=== PATIENT | female | born 1995 | race Two or more races ===

== ENCOUNTER 2017-12-11 18:24 | Emergency (ER) | payer OTHER ==
[2017-12-11 18:36] VITALS: BP 118/58
--- NOTE | 2017-12-11 18:47 | EDPHY ---
H & P Stated Complaint: hit the top of head with a 35lb weight. Denies LOC, now mild nausea Time Seen by Provider: 12/11/17 18:39 HPI/ROS: CHIEF COMPLAINT: "I hit my head" HISTORY OF PRESENT ILLNESS: 22-year-old female with no anticoagulant use history arrives via private vehicle stating that she stood up suddenly impacted the vertex of her head against a weight. Occurred approximately 1 hr prior to arrival.No object fell and hit her. She is complaining of mild localized pain to this area only hand mild nausea. No progressive or thunderclap headaches. No peripheral paresthesia, weakness, numbness. No midline C-spine pain. No visual disturbance. No vomiting. No back pain. No dyspnea. No chest pain or trauma. REVIEW OF SYSTEMS: A ten point review of systems was performed and is negative with the exception of the items mentioned in the HPI PAST MEDICAL/SURGICAL HISTORY: no anticoagulant use, spontaneous pneumothorax x3. SOCIAL HISTORY: denies alcohol use at time of incident PHYSICAL EXAM 1) GENERAL: Well-developed, well-nourished, alert and oriented. Appears to be in no acute distress. Answering questions appropriately. 2) HEAD: Normocephalic, , localized area of tenderness right lateral vertex. No hematoma. No depression. No laceration or abrasion. 3) HEENT: Pupils equal, round, reactive to light bilaterally. Negative Horners. Nasopharynx, oropharynx, clear. No deformity or angulation of nose. No septal hematoma. No rhinorrhea. No oral trauma. Ears bilaterally with normal tympanic membranes. No hemotympanum. No fluid or blood in the external auditory canal. No raccoon eyes. No Godfrey sign. Teeth are normally aligned with no gross malocclusion, TMJ bilaterally nontender, facial bones nontender including the zygomatic arch, maxilla mandible. 4) NECK: No cervical collar is on. Posterior cervical spine is nontender, no stepoff, no effusion. Full range of motion which does not elicit any midline cervical spine pain, no posterior midline tenderness, no step-off. 5) LUNGS: Clear to auscultation bilaterally, no wheezes, no rhonchi, no retractions. No obvious signs of trauma. No chest wall pain. No flaring, no grunting. Moving symmetrically. No crepitus. 6) HEART: [Regular rate and rhythm, 7) ABDOMEN: No guarding, no rebound, no focal tenderness, no peritoneal signs, no signs of trauma, no ecchymosis 8) MUSCULOSKELETAL: Moving all extremities, no focal areas of tenderness, no obvious trauma. 9) BACK: No midline vertebral tenderness, no fluctuance, no step-off, no obvious trauma, no visual or palpable abnormality. 10) SKIN: No laceration. No abrasion DIFFERENTIAL DIAGNOSIS: Not necessarily in any particular order, my differential diagnosis includes, but is not limited to, concussion, skull fracture, intraparenchymal contusion, subarachnoid, subdural and epidural hematoma. The patient understands that this diagnosis is provisional and can never be 100% accurate. - Personal History LMP (Females 10-55): Now - Medical/Surgical History Hx Asthma: No Hx Chronic Respiratory Disease: No Hx Diabetes: No Hx Cardiac Disease: No Hx Renal Disease: No Hx Cirrhosis: No Hx Alcoholism: No Hx HIV/AIDS: No Hx Splenectomy or Spleen Trauma: No Other PMH: multiple pneumothorax - Social History Smoking Status: Never smoked Constitutional: Initial Vital Signs Temperature (C) 36.8 C 12/11/17 18:33 Heart Rate 64 12/11/17 18:33 Respiratory Rate 16 12/11/17 18:33 Blood Pressure 118/58 L 12/11/17 18:33 O2 Sat (%) 98 12/11/17 18:33 O2 Delivery Mode Room Air Allergies/Adverse Reactions: No Known Allergies Allergy (Verified 12/11/17 18:32) Home Medications: Medication Instructions Recorded Citalopram Hydrobromide [celeXA 10 12/11/17 MG] Tiotropium Inhaler [Spiriva 12/11/17 Handihaler] Medical Decision Making ED Course/Re-evaluation: 6:50 p.m.: This patient has a nonfocal exam, negative [place] head CT imaging decision-making tool. I do not think that the benefits of CT imaging outweigh the risks in this patient whom I have a low pretest suspicion for intracranial hemorrhage and/or skull fracture. Nonetheless I have have provided usual and customary head injury precautions instructions. I have explained my decision- making process to her and she verbalized understanding and feels comfortable with this plan of observation. I believe her to have decision-making capacity. Care of patient under supervision of primary Supervising physician Dr Willams. Departure - Departure Disposition: Home, Routine, Self-Care Clinical Impression: Head injury due to trauma Condition: Good Instructions: Head Injury (ED) Additional Instructions: ALTHOUGH THERE IS NO EVIDENCE OF SERIOUS HEAD INJURY AT THIS TIME, DELAYED SIGNS CAN APPEAR 24 TO 48 HOURS AFTER INJURY. PLEASE RETURN TO THE EMERGENCY DEPARTMENT (ED) IMMEDIATELY IF YOU HAVE INCREASED HEADACHE, PERSISTENT HEADACHE , VOMITING, WEAKNESS, CONFUSION OR VISUAL PROBLEMS. WE RECOMMEND THAT YOU DO NOT RESUME CONTACT SPORTS OR ACTIVITIES THAT TAKE COORDINATION OR BALANCE SUCH SKIING OR RIDING A BICYCLE UNTIL CLEARED TO DO SO BY YOUR DOCTOR OR BY A NEUROLOGIST. Referrals: Alice Gomez MD [Medical Doctor] - As per Instructions
== END 2017-12-11 19:12 | disposition home or self-care (01) ==
DX: S09.90XA Unspecified injury of head, initial encounter (principal); W22.8XXA Striking against or struck by other objects, initial encounter

== ENCOUNTER 2017-12-23 22:03 | Emergency (ER) | payer OTHER ==
[2017-12-23 22:07] VITALS: BP 106/61
[2017-12-23] MEDS ORDERED: MAG HYDROX/AL HYDROX/SIMETH 30 ML UDCUP PO ONE (22:36)
[2017-12-23] MEDS ORDERED: LIDOCAINE 2% VISCOUS 15 ML UDCUP PO ONE (22:36)
--- NOTE | 2017-12-23 22:36 | EDPHY ---
H & P Stated Complaint: sharp pain in mid chest then SOB one hour [employer] Time Seen by Provider: 12/23/17 22:09 HPI/ROS: Chief Complaint: Chest pain, shortness of breath HPI: 22-year-old woman had a sudden onset of central chest tightness with some shortness of breath while walking down the mall this evening. She has a history of 3 spontaneous pneumothoraces in the past, 2 on the right, 1 on the left. She says that she is feeling tonight did not feel like her prior collapsed lungs. No recent falls or injuries. She has had a mild nonproductive cough the last 2 days. She has been using Atrovent inhaler at the recommendation of her surgeon from her last pneumothorax. No fevers or chills. No dyspnea on exertion. She is not taking any medications. Does hurt when she moves her arms around her sternum. ROS: 10 point Review of Systems is negative except as noted in the HPI. PMH: Spontaneous pneumothorax x3 Social History: No smoking, no alcohol, no recreational drug use Family History: non-contributory Physical Exam: Gen: Awake, Alert, No Distress HEENT: Nose: no rhinorrhea Eyes: PERRLA, EOMI Mouth: Moist mucosa Neck: Supple, no JVD Chest: Patient has bilateral parasternal chest wall tenderness to palpation reproducing presenting complaint, lungs clear to auscultation Heart: S1, S2 normal, no murmur Abd: Soft, non-tender, no guarding Back: no CVA tenderness, no midline tenderness Ext: no edema, non-tender Skin: no rash Neuro: CN II-XII intact, Sensation grossly intact, Strength 5/5 in bilateral upper and lower extremities - Personal History LMP (Females 10-55): 1-7 Days Ago Current Tetanus/Diphtheria Vaccine: Yes Current Tetanus Diphtheria and Acellular Pertussis (TDAP): Yes - Medical/Surgical History Hx Asthma: No Hx Chronic Respiratory Disease: No Hx Diabetes: No Hx Cardiac Disease: No Hx Renal Disease: No Hx Cirrhosis: No Hx Alcoholism: No Hx HIV/AIDS: No Hx Splenectomy or Spleen Trauma: No Other PMH: multiple pneumothorax - Social History Smoking Status: Never smoked Constitutional: Initial Vital Signs Temperature (C) 36.6 C 12/23/17 22:05 Heart Rate 66 12/23/17 22:05 Respiratory Rate 18 12/23/17 22:05 Blood Pressure 106/61 12/23/17 22:05 O2 Sat (%) 98 12/23/17 22:05 O2 Delivery Mode Room Air Allergies/Adverse Reactions: No Known Allergies Allergy (Verified 12/23/17 22:07) Home Medications: Medication Instructions Recorded Citalopram Hydrobromide [celeXA 10 12/11/17 MG] Medical Decision Making - Diagnostics Imaging Results: Imaging Impressions Chest X-Ray 12/23/17 22:15 Impression: No evidence of pneumothorax. ED Course/Re-evaluation: Patient's chest x-ray is normal. She has reproducible parasternal pain consistent with chest wall strain. He has no risk factors for coronary disease or PE. She is otherwise young and healthy. Will send her home with nonsteroidals, follow up with primary care physician. - Data Points Medications Given: Discontinued Medications Al Hydroxide/Mg Hydroxide (Maalox Susp) 30 ml PO ONCE ONE Stop: 12/23/17 22:37 Last Admin: 12/23/17 22:44 Dose: 30 ml Lidocaine (Lidocaine 2% Viscous) 15 ml PO ONCE ONE Stop: 12/23/17 22:37 Last Admin: 12/23/17 22:44 Dose: 15 ml Departure - Departure Disposition: Home, Routine, Self-Care Clinical Impression: Chest wall pain Condition: Good Instructions: Chest Wall Pain (ED) Additional Instructions: Alternate acetaminophen (1000 mg) with ibuprofen (400 mg) every 4 hours as needed for pain. Follow up with primary care physician in 3-4 days if symptoms are not improving. Return to the emergency department for increasing chest pain, shortness of breath, fainting, or any other concerns. Referrals: NONE *PRIMARY CARE P,. [Primary Care Provider] - As per Instructions
[2017-12-23] MEDS ORDERED: IBUPROFEN 600 MG TAB PO ONE (22:58)
== END 2017-12-23 23:06 | disposition home or self-care (01) ==
DX: R07.89 Other chest pain (principal)

== ENCOUNTER 2018-02-25 00:32 | Emergency (ER) | payer OTHER ==
[2018-02-25] MEDS ORDERED: NS 1,000 ML IV ONE (00:41)
--- NOTE | 2018-02-25 00:41 | EDPHY ---
H & P Stated Complaint: rt CP, sudden onset tonight just [employer]. hx/o spont. pneumo x 3, feels same Time Seen by Provider: 02/25/18 00:41 HPI/ROS: HPI CHIEF COMPLAINT: Right-sided chest discomfort. HISTORY OF PRESENT ILLNESS: 22-year-old female, presents emergency room she states approximately 45 min ago she developed sudden-onset right-sided sharp stabbing chest chest pain. States that the pain is mainly right lateral upper chest and clavicular region. Worse when she takes deep breath in. She states she has had previous history of 3 pneumothorax is. All spontaneous. This feels similar in presentation. She has had a pleurodesis of both lungs. She believes she had 2 pneumothorax on the right and 1 pneumothorax on the left all requiring chest tubes. She states denies any trauma tonight. She reports she had Pleurodesis of both lungs. She thinks last pneumothorax was 2 years ago. She denies a history of PE or cardiovascular disease. She believes that she gets pneumothorax from blebs. States she has a family history of these. Past Medical History: Pneumothorax x3. Past Surgical History: Chest tube x3, pleurodesis bilaterally Social History: Denies daily use drugs alcohol tobacco. Family History: Noncontributory ROS REVIEW OF SYSTEMS: A comprehensive 10 point review of systems is otherwise negative aside from elements mentioned in the history of present illness. Exam Constitutional appears well nontoxic no acute distress, triage nursing summary reviewed, vital signs reviewed, awake/alert. Vital signs stable triage. Eyes normal conjunctivae and sclera, EOMI, PERRLA. HENT normal inspection, atraumatic, moist mucus membranes, no epistaxis, neck supple/ no meningismus, no raccoon eyes. Respiratory good breath sounds bilaterally, no subcutaneous emphysema clear to auscultation bilaterally, normal breath sounds, no respiratory distress, no wheezing. Cardiovascular rate normal, regular rhythm, no murmur, no edema, distal pulses normal. Gastrointestinal soft, non-tender, no rebound, no guarding, normal bowel sounds, no distension, no pulsatile mass. Genitourinary no CVA tenderness. Musculoskeletal no midline vertebral tenderness, full range of motion, no calf swelling, no tenderness of extremities, no meningismus, good pulses, neurovascularly intact. Skin pink, warm, & dry, no rash, skin atraumatic. Neurologic awake, alert and oriented x 3, AAOx3, moves all 4 extremities equally, motor intact, sensory intact, CN II-XII intact, normal cerebellar, normal vision, normal speech. Psychiatric normal mood/affect. Heme/Lymph/Immune no lymphadenopathy. Differential Diagnosis: Includes but is not limited to in a particular order right-sided pneumothorax, tension pneumothorax, bleb, PE, musculoskeletal chest pain, pleurisy Medical Decision Making: Plan for this patient two view chest x-ray to rule out pneumothorax, IV establishment blood draw, EKG, D-dimer. Re-evaluate. Re-evaluation: ED x-ray chest two view negative for pneumothorax or acute cardiopulmonary disease I do visualize scar tissue in the right lung. EKG interpretation by me on record in [facility] system. Impression time of EK12/06/1999, sinus rhythm is 64 no acute ischemia no ST elevation ST depression T-wave abnormality V1 and V3. Nonspecific otherwise no signs of acute ischemia. 0150: I did go re-evaluate the patient she still complains of right-sided pleuritic pain sharp stabbing worse when she breathes in. I was unable to visualize pneumothorax on the x-ray. Is possible there is a small 1 I am unable to see versus pulmonary embolism. Patient does complain of sharp stabbing right-sided pain when she breathes in. I had a long discussion with her about risk versus benefit about CT imaging of her chest she would like to proceed with CT angiogram of chest rule out PE versus pneumothorax. Discussed risk versus benefit of this. CT angiogram of the chest shows no evidence of pneumothorax or pulmonary embolism called to me by Dr. Reid. Return precautions discussed with patient understands return emergency room if develops worsening chest pain shortness of breath, fever. Recommend anti- inflammatory pain medicine. Possible pleurisy given scar tissue. Source: Patient - Personal History LMP (Females 10-55): 1-7 Days Ago Current Tetanus/Diphtheria Vaccine: Yes Current Tetanus Diphtheria and Acellular Pertussis (TDAP): Yes - Medical/Surgical History Hx Asthma: No Hx Chronic Respiratory Disease: No Hx Diabetes: No Hx Cardiac Disease: No Hx Renal Disease: No Hx Cirrhosis: No Hx Alcoholism: No Hx HIV/AIDS: No Hx Splenectomy or Spleen Trauma: No Other PMH: multiple pneumothorax - Social History Smoking Status: Never smoked Constitutional: Initial Vital Signs Temperature (C) 36.5 C 07/24/18 00:36 Heart Rate 82 02/25/18 00:36 Respiratory Rate 16 02/25/18 00:36 Blood Pressure 112/72 02/25/18 00:36 O2 Sat (%) 96 02/25/18 00:36 O2 Delivery Mode Room Air O2 (L/minute) 2 Allergies/Adverse Reactions: No Known Allergies Allergy (Verified 02/25/18 00:35) Home Medications: Medication Instructions Recorded Citalopram Hydrobromide [celeXA 10 12/11/17 MG] Medical Decision Making - Data Points Laboratory Results: Laboratory Results 02/25/18 00:45 02/25/18 00:45 02/25/18 02/25/18 02/25/18 00:48 00:45 00:45 WBC RBC Hgb Hct MCV MCH MCHC RDW Plt Count MPV Neut % (Auto) Lymph % (Auto) Johnson % (Auto) Eos % (Auto) Baso % (Auto) Nucleat RBC Rel Count Absolute Neuts (auto) Absolute Lymphs (auto) Absolute Monos (auto) Absolute Eos (auto) Absolute Basos (auto) Absolute Nucleated RBC Immature Gran % Immature Gran # D-Dimer 0.40 ug/mLFEU ug/mLFEU (0.00-0.50) Sodium 139 mEq/L mEq/L (135-145) Potassium 3.8 mEq/L mEq/L (3.3-5.0) Chloride 111 mEq/L H mEq/L (97-110) Carbon Dioxide 19 mEq/l L mEq/l (22-31) Anion Gap 9 mEq/L mEq/L (8-16) BUN 14 mg/dL mg/dL (7-23) Creatinine 0.7 mg/dL mg/dL (0.6-1.0) Estimated GFR > 60 Glucose 119 mg/dL H mg/dL (70-100) Calcium 9.3 mg/dL mg/dL (8.5-10.4) POC Troponin I 0.00 ng/mL ng/mL (0.00-0.08) NT-Pro-B Natriuret Pep 23 pg/mL pg/mL (0-125) 02/25/18 00:45 WBC 10.26 10^3/uL H 10^3/uL (3.80-9.50) RBC 5.13 10^6/uL 10^6/uL (4.18-5.33) Hgb 12.4 g/dL L g/dL (12.6-16.3) Hct 39.1 % % (38.0-47.0) MCV 76.2 fL L fL (81.5-99.8) MCH 24.2 pg L pg (27.9-34.1) MCHC 31.7 g/dL L g/dL (32.4-36.7) RDW 17.6 % H % (11.5-15.2) Plt Count 306 10^3/uL 10^3/uL (150-400) MPV 10.3 fL fL (8.7-11.7) Neut % (Auto) 51.0 % % (39.3-74.2) Lymph % (Auto) 36.8 % % (15.0-45.0) Johnson % (Auto) 10.2 % % (4.5-13.0) Eos % (Auto) 1.1 % % (0.6-7.6) Baso % (Auto) 0.7 % % (0.3-1.7) Nucleat RBC Rel Count 0.0 % % (0.0-0.2) Absolute Neuts (auto) 5.23 10^3/uL 10^3/uL (1.70-6.50) Absolute Lymphs (auto) 3.78 10^3/uL H 10^3/uL (1.00-3.00) Absolute Monos (auto) 1.05 10^3/uL H 10^3/uL (0.30-0.80) Absolute Eos (auto) 0.11 10^3/uL 10^3/uL (0.03-0.40) Absolute Basos (auto) 0.07 10^3/uL 10^3/uL (0.02-0.10) Absolute Nucleated RBC 0.00 10^3/uL 10^3/uL (0-0.01) Immature Gran % 0.2 % % (0.0-1.1) Immature Gran # 0.02 10^3/uL 10^3/uL (0.00-0.10) D-Dimer Sodium Potassium Chloride Carbon Dioxide Anion Gap BUN Creatinine Estimated GFR Glucose Calcium POC Troponin I NT-Pro-B Natriuret Pep Medications Given: Discontinued Medications Sodium Chloride (Ns) 1,000 mls @ 0 mls/hr IV EDNOW ONE; Wide Open PRN Reason: Protocol Stop: 02/25/18 00:42 Last Admin: 02/25/18 00:59 Dose: 1,000 mls Ketorolac Tromethamine (Toradol) 15 mg IVP EDNOW ONE Stop: 02/25/18 01:52 Last Admin: 02/25/18 02:05 Dose: 15 mg Point of Care Test Results: Chemistry 02/25/18 00:48 POC Troponin I 0.00 ng/mL ng/mL (0.00-0.08) Departure - Departure Disposition: Home, Routine, Self-Care Clinical Impression: Pleurisy Condition: Good Instructions: Pleurisy (ED) Additional Instructions: 1. Stay well-hydrated take lots of fluids 2. Anti-inflammatory pain medicine for pain control Tylenol Motrin alternating every 4-6 hours 3. Return emergency room if you have worsening pain questions or concerns. Referrals: NONE *PRIMARY CARE P,. [Primary Care Provider] - As per Instructions
--- NOTE | 2018-02-25 00:55 | CPEKG ---
Heart Rate: 64 RR Interval: 938 P-R Interval: 136 QRSD Interval: 86 QT Interval: 420 QTC Interval: 434 P Howells: 28 QRS Howells: 56 T Wave Howells: -6 EKG Severity - BORDERLINE ECG - EKG Impression: SINUS RHYTHM EKG Impression: BORDERLINE T ABNORMALITIES, DIFFUSE LEADS Electronically Signed By: Cesar Romero 25-Feb-2018 08:20:16
[2018-02-25 01:10] LABS: PLATELET COUNT 306 10^3/uL (150-400)
[2018-02-25] MEDS ORDERED: KETOROLAC 15 MG/1 ML SDV IVP ONE (01:51)
[2018-02-25] MEDS ORDERED: IOPAMIDOL (ISOVUE 370) 100 ML BTL IV ONE (01:52)
[2018-02-25 02:44] VITALS: BP 110/63
== END 2018-02-25 02:40 | disposition home or self-care (01) ==
DX: R09.1 Pleurisy (principal); E86.9 Volume depletion, unspecified
CPT/HCPCS: 84484-PO; 96374; J1885; Q9967